=== PATIENT | male | born 1995 | race Caucasian/White ===

== ENCOUNTER 2024-07-13 07:00 | Day surgery (SDC) | payer SELFPAY ==
[~2024-07-13 07:00] MED LIST: Sodium Chloride 0.9% 10 ML Syringe FLUSH PRN; Sodium Chloride 0.9% 10 ML Syringe FLUSH SCH
[2024-07-13] MEDS ORDERED: Ondansetron 4 MG/2 ML SDV ONE (07:41)
[2024-07-13] MEDS ORDERED: Midazolam 1 MG/ML 2 ML SDV ONE (07:41)
[2024-07-13] MEDS ORDERED: Propofol 200 MG/20 ML SDV ONE ×7 (07:41→10:17)
[2024-07-13] MEDS ORDERED: dexmedeTOMIDine HCl 200 MCG/2 ML SDV ONE (07:44)
[2024-07-13] MEDS: Lactated Ringers 1,000 ML IV SCH (07:50)
[2024-07-13] MEDS: Pregabalin 25 MG Cap PO ONE (09:09)
[2024-07-13] MEDS: oxyCODONE ER 10 MG TAB.ER PO ONE (09:09)
[2024-07-13] MEDS: Acetaminophen 325 MG Tab PO ONE (09:09)
[2024-07-13] MEDS ORDERED: ceFAZolin 2 GM Vial ONE (09:31)
[2024-07-13] MEDS ORDERED: Phenylephrine 1% 10 MG/ML SDV ONE (09:31)
[2024-07-13] MEDS ORDERED: fentaNYL 100 MCG/2 ML SDV IVPUSH PRN (11:02)
[2024-07-13] MEDS ORDERED: HYDROmorphone 1 MG/ML Syringe IVPUSH ONE (11:15)
[2024-07-13] MEDS: Tranexamic Acid 1,000 MG/10 ML Vial ONE (11:24)
[2024-07-13] MEDS: Vancomycin 1 GM SDV ONE (11:25)
[2024-07-13] MEDS: Morphine 8 MG, EPINEPHrine 0.3 MG, Cefuroxime 750 MG, Ketorolac 30 MG, Sodium Chloride ... SUBCUT SCH (11:26)
[2024-07-13] MEDS: oxyCODONE 5 MG Tab PO PRN (13:13)
== END 2024-07-13 15:26 | disposition home or self-care (01) ==
LOC: JD.SDS 07:00
PROVIDERS: ATTEND Orthopaedic Surgery
DX: M16.11 Unilateral primary osteoarthritis, right hip (principal)
CPT/HCPCS: 01214; 73501-26-RT; 73501-RT; 97110-GP; 97116-GP; 97161-GP; A9270-GY; C1713; C1776; J0171; J0690; J0697; J1885; J2250; J2270; J2371; J2405; J2704; J3490; J7120